=== PATIENT | female | born 1940 | race Caucasian/White ===

== ENCOUNTER 2016-10-05 11:44 | Inpatient (IN) | payer MEDICARE, BC ==
[~2016-10-05] VITALS: Ht 172.7 cm; Wt 69.8 kg
[2016-10-05] VITALS (15 sets, daily range): BP systolic 126–176; BP diastolic 64–91; PULSE 57–70; RESP 12–20; TEMP 98.6; O2SAT 98–100
[2016-10-05] MEDS ORDERED: SUCCINYLCHOLINE CHLORIDE 200 MG/10 ML VIAL ONE (12:01)
[2016-10-05] MEDS ORDERED: ETOMIDATE 20 MG/10 ML VIAL ONE (12:01)
[2016-10-05] MEDS ORDERED: ROCURONIUM INJ 50 MG/5 ML VIAL ONE (12:38)
[2016-10-05] MEDS ORDERED: PROPOFOL 500 MG/50 ML INJ 50 ML ONE (12:41)
[2016-10-05] MEDS ORDERED: SODIUM CHLORIDE 0.9% FLUSH 5 ML FLUSH IVF PRN ×2 (12:45→15:45)
--- NOTE | 2016-10-05 13:13 | PD ---
HPI Chief Complaint: OD/ Ingestion Time Seen by Provider: 12:06 Travel History International Travel<30 days: No Contact w/Intl Traveler<30days: No Traveled to known affect area: No History of Present Illness HPI 76yo F with PMH of depression presents to the ED with altered mental status s/p overdose. Per , he found her in the bed at 9am with empty bottles of alprazolam and escitalopram. Pt was prescribed 30 escitalopram on 07/31/16 and 60 alprazolam on 09/19/16. does not know how many was in there. There was also another 2 empty bottles of escitalopram and alprazolam. Pt arousable to voice and opens eyes but is very lethargic. VS stable. Pt not following commands. Pt given narcan 2mg by EVAC with no response. No signs of trauma. PFSH Past Medical History Asthma: Yes Anxiety: Yes Depression: Yes Past Surgical History Genitourinary Surgery: Yes (?kidney surgery) Other Surgery: Yes (breast augmentation) Social History Alcohol Use: No Tobacco Use: No Substance Use: No Allergies-Medications (Allergen,Severity, Reaction): Coded Allergies: No Known Allergies (Unverified , 10/05/16) Reported Meds & Prescriptions Reported Meds & Active Scripts Active Reported Lexapro (Escitalopram Oxalate) 5 Mg Tab Unknown Dose PO DAILY Xanax (Alprazolam) 0.25 Mg Tab Unknown Dose PO Review of Systems ROS Limitations: Altered Mental Status Physical Exam Narrative GENERAL: 76yo lethargic. SKIN: Warm and dry. HEAD: Atraumatic. Normocephalic. EYES: Pupils 3mm reactive bilaterally to light. No scleral icterus. No injection or drainage. ENT: No nasal bleeding or discharge. Mucous membranes pink and moist. NECK: Trachea midline. No JVD. CARDIOVASCULAR: Regular rate and rhythm. No murmur appreciated. RESPIRATORY: No accessory muscle use. Clear to auscultation. Breath sounds equal bilaterally. GASTROINTESTINAL: Abdomen soft, non-tender, nondistended. No rebound tenderness or guarding. MUSCULOSKELETAL: No obvious deformities. No clubbing. No cyanosis. No edema. NEUROLOGICAL: Lethargic, arousable with voice and to pain. Pt moves extremities but not to command. Data Data Last Documented VS Vital Signs Date Time Temp Pulse Resp B/P Pulse Ox O2 Delivery O2 Flow Rate FiO2 10/05/16 13:37 100 Ventilator 14 35 10/05/16 13:26 59 20 145/85 Orders Etomidate Inj (Amidate Inj) (10/05/16 12:01) Succinylcholine Inj (Quelicin Inj) (10/05/16 12:01) Rocuronium Inj (Zemuron Inj) (10/05/16 12:38) Propofol 500 Mg/50 Ml Inj (Diprivan 500 (10/05/16 12:41) Chest, Single Ap (10/05/16 ) Electrocardiogram (10/05/16 12:44) Alcohol (Ethanol) (10/05/16 12:44) Ammonia (10/05/16 12:44) Basic Metabolic Panel (Bmp) (10/05/16 12:44) Complete Blood Count With Diff (10/05/16 12:44) Creatine Kinase (Cpk) (10/05/16 12:44) Drug Screen, Random Urine (10/05/16 12:44) Prothrombin Time / Inr (Pt) (10/05/16 12:44) Act Partial Throm Time (Ptt) (10/05/16 12:44) Salicylates (Aspirin) (10/05/16 12:44) Troponin I (10/05/16 12:44) Tylenol (Acetaminophen) (10/05/16 12:44) Thyroid Stimulating Hormone (10/05/16 12:44) Urinalysis - C+S If Indicated (10/05/16 12:44) Ct Brain W/O Iv Contrast(Rout) (10/05/16 12:44) Blood Glucose (10/05/16 12:44) Ecg Monitoring (10/05/16 12:44) Iv Access Insert/Monitor (10/05/16 12:44) Oximetry (10/05/16 12:44) Sodium Chloride 0.9% Flush (Ns Flush) (10/05/16 12:45) Succinylcholine Inj (Quelicin Inj) (10/05/16 13:15) Etomidate Inj (Amidate Inj) (10/05/16 13:15) Rocuronium Inj (Zemuron Inj) (10/05/16 13:15) Propofol 1000 Mg/100 Ml Inj (Diprivan 10 (10/05/16 13:15) ^ Infusion (10/05/16 13:08) RASS (10/05/16 13:08) Neurological Rass Scale DONNA.Q2H (10/05/16 13:08) Urine Culture (10/05/16 13:05) Arterial Blood Gas (Abg) (10/05/16 14:10) Admit Order (Ed Use Only) (10/05/16 14:29) Labs Laboratory Tests Test 10/05/16 10/05/16 10/05/16 13:05 13:07 14:10 White Blood Count 7.2 TH/MM3 Red Blood Count 4.21 MIL/MM3 Hemoglobin 12.8 GM/DL Hematocrit 38.9 % Mean Corpuscular Volume 92.3 FL Mean Corpuscular Hemoglobin 30.4 PG Mean Corpuscular Hemoglobin 33.0 % Concent Red Cell Distribution Width 14.4 % Platelet Count 276 TH/MM3 Mean Platelet Volume 7.9 FL Neutrophils (%) (Auto) 65.4 % Lymphocytes (%) (Auto) 22.9 % Monocytes (%) (Auto) 6.6 % Eosinophils (%) (Auto) 4.2 % Basophils (%) (Auto) 0.9 % Neutrophils # (Auto) 4.7 TH/MM3 Lymphocytes # (Auto) 1.6 TH/MM3 Monocytes # (Auto) 0.5 TH/MM3 Eosinophils # (Auto) 0.3 TH/MM3 Basophils # (Auto) 0.1 TH/MM3 CBC Comment DIFF FINAL Differential Comment Prothrombin Time 10.2 SEC Prothromb Time International 0.9 RATIO Ratio Activated Partial 21.1 SEC Thromboplast Time Urine Color YELLOW Urine Turbidity CLEAR Urine pH 5.5 Urine Specific [place] 1.011 Urine Protein NEG mg/dL Urine Glucose (UA) NEG mg/dL Urine Ketones NEG mg/dL Urine Occult Blood NEG Urine Nitrite NEG Urine Bilirubin NEG Urine Urobilinogen LESS THAN 2.0 MG/DL Urine Leukocyte Esterase SMALL Urine RBC 1 /hpf Urine WBC 1 /hpf Urine Squamous Epithelial 1 /hpf Cells Urine Bacteria RARE /hpf Urine Mucus FEW /lpf Microscopic Urinalysis Comment CATH-CULTURE IND Ammonia 36 MCMOL/L Urine Opiates Screen NEG Urine Barbiturates Screen NEG Urine Amphetamines Screen NEG Urine Benzodiazepines Screen POS Urine Cocaine Screen NEG Urine Cannabinoids Screen NEG Sodium Level 141 MEQ/L Potassium Level 4.4 MEQ/L Chloride Level 107 MEQ/L Carbon Dioxide Level 28.4 MEQ/L Anion Gap 6 MEQ/L Blood Urea Nitrogen 13 MG/DL Creatinine 1.06 MG/DL Estimat Glomerular Filtration 50 ML/MIN Rate Random Glucose 89 MG/DL Calcium Level 8.4 MG/DL Total Creatine Kinase 60 U/L Troponin I LESS THAN 0.02 NG/ML Thyroid Stimulating Hormone 1.250 uIU/ML 3rd Gen Salicylates Level LESS THAN 1.7 MG/DL Acetaminophen Level 7.6 MCG/ML Ethyl Alcohol Level LESS THAN 3 MG/DL Blood Gas Puncture Site RT BRACHIAL Blood Gas Patient Temperature 98.6 Blood Gas HCO3 26 mmol/L Blood Gas Base Excess 3.4 mmol/L Blood Gas Oxygen Saturation 96 % Arterial Blood pH 7.53 Arterial Blood Partial 32 mmHg Pressure CO2 Arterial Blood Partial 350 mmHG Pressure O2 Arterial Blood Oxygen Content 19.2 Vol % Arterial Blood 1.9 % Carboxyhemoglobin Arterial Blood Methemoglobin 1.9 % Blood Gas Hemoglobin 13.6 G/DL Oxygen Delivery Device VENTILATOR Blood Gas Ventilator Setting 500/14/5PEEP Blood Gas Inspired Oxygen 75 % MDM Medical Decision Making Medical Screen Exam Complete: Yes Emergency Medical Condition: Yes Interpretation(s) EKG: NSR 66bpm. Normal axis. QRS narrow. QTc 477ms. Differential Diagnosis Intentional overdose vs. AMS secondary to ICH vs. electrolyte abnormality vs. UTI Narrative Course 76yo F with depression here with altered mental status and empty bottles of escitalopram and alprazolam. Discussed with pt's who was at bedside and he agrees with plan to intubate. He states he did not know when last normal was but was not able to arouse her at about 9am today. Labs reviewed, no leukocytosis. Ammonia mildly elevated at 36. TSH normal. Troponin negative. Salicylate negative. Acetaminophen 7.6. Alcohol negative. Benzo positive. VS stable. CXR showed cardiomegaly and endotracheal tube at juhi. Pt emergently intubated secondary to altered mental status using succinylcholine and etomidate. Pt was given rocuronium immediately after intubation as we were getting the propofol drip. Discussed with Dr. Espinosa and accepted to ICU. Pt nighat acted as suspicious for intentional overdose. Critical Care Narrative Aggregate critical care time was 50 minutes. Time to perform other separately billable procedures was not included in the critical care time. My time did not include minutes spent treating any other patients simultaneously or on activities that did not directly contribute to the patient's treatment. The services I provided to this patient were to treat and/or prevent clinically significant deterioration that could result in: cardiovascular collapse or . I provided critical care services requiring my management, as noted below: Chart data review, documentation time, medication orders and management, vital sign assessments/reviewing monitor data, ordering and reviewing lab tests, ordering and interpreting/reviewing x-rays and diagnostic studies, care of the patient and discussion of the patient with the admitting physicians. Procedures Procedure Narrative The patient was put in optimal position for the procedure. Rapid sequence intubation was initiated by me using 20 milligrams of etomidate IV and 100 milligrams of succinylcholine IV. The patient was intubated with a 7.5 cuffed endotracheal tube. It was a difficult intubation and initially unsuccessful with direct laryngoscopy. Pt intubated with glidescope. Tube placement was confirmed by visualization of the tube and balloon passing through the cords, capnometry and subsequent chest x-ray. Breath sounds were equal and well aerated bilaterally postintubation. No breath sounds over stomach. Patient tolerated procedure well. Diagnosis Primary Impression: Overdose Qualified Code: T50.902A - Overdose, intentional self-harm, initial encounter Admitting Information Admitting Physician Requests: Admit Kate Foster DO Oct 05, 2016 13:13
[2016-10-05] MEDS ORDERED: SUCCINYLCHOLINE CHLORIDE 200 MG/10 ML VIAL IV PUSH ONE (13:15)
[2016-10-05] MEDS ORDERED: PROPOFOL 1000 MG/100 ML INJ 100 ML IV SCH (13:15)
[2016-10-05] MEDS ORDERED: ETOMIDATE 20 MG/10 ML VIAL IV PUSH ONE (13:15)
[2016-10-05] MEDS ORDERED: ROCURONIUM INJ 50 MG/5 ML VIAL IV ONE (13:15)
--- NOTE | 2016-10-05 13:26 | RADRPT ---
EXAM DATE/TIME: 10/05/2016 12:59 [facility] COMPARISON: No previous studies available for comparison. INDICATIONS : Altered mental status. MEDICAL HISTORY : None. SURGICAL HISTORY : None. ENCOUNTER: Initial ACUITY: 1 day PAIN SCORE: Non-responsive. LOCATION: Bilateral chest FINDINGS: The cardiac silhouette is enlarged in transverse diameter. The lungs are free of acute parenchymal op acity. No effusions are identified. There is prominence of the aortic knob is with calcification pedrito acteristic of atherosclerotic vascular disease. Endotracheal tube is at the juhi and could be retra cted 2-3 cm. A nasogastric tube is in place with its tip in the stomach. CONCLUSION: 1. Cardiomegaly. No acute pulmonary disease. 2. Endotracheal tube directly at the juhi Noe Herrera MD on October 05, 2016 at 13:24 Board Certified Radiologist. This report was verified electronically.
[2016-10-05 13:40] LABS: AUTOMATED NEUTROPHIL # 4.7 TH/MM3 (1.8-7.7); BASOPHIL # 0.1 TH/MM3 (0-0.2); BASOPHIL % 0.9 % (0.0-2.0); EOSINOPHIL # 0.3 TH/MM3 (0-0.4); EOSINOPHIL % 4.2 % (0.0-4.0); HEMATOCRIT 38.9 % (35.0-46.0); HEMO FLAGS DIFF FINAL; LYMPH % 22.9 % (9.0-44.0); LYMPHOCYTE # 1.6 TH/MM3 (1.0-4.8); MEAN CELL VOLUME 92.3 FL (80.0-100.0); MEAN CORPUSCULAR HEMOGLOBIN 30.4 PG (27.0-34.0); MONO % 6.6 % (0.0-8.0); NEUT % 65.4 % (16.0-70.0); PLATELET COUNT 276 TH/MM3 (150-450); RED BLOOD COUNT 4.21 MIL/MM3 (4.00-5.30); RED CELL DISTRIBUTION WIDTH 14.4 % (11.6-17.2); WHITE BLOOD COUNT 7.2 TH/MM3 (4.0-11.0)
[2016-10-05 13:50] LABS: BACTERIA, URINE RARE /hpf; BLOOD, URINE NEG (NEG); GLUCOSE,URINE NEG (NEG); KETONE, URINE NEG (NEG); MUCUS URINE FEW /lpf (OCC); NITRITE,URINE NEG (NEG); PH, URINE 5.5 (5.0-8.5); SQUAMOUS EPITHELIAL CELL URINE 1 /hpf (0-5); URINE COLOR YELLOW (YELLW/STRAW)
[2016-10-05 13:52] LABS: APTT (PATIENT) 21.1 SEC (24.3-30.1); INTERNATIONAL NORMALIZED RATIO 0.9 RATIO; PROTHROMBIN TIME - PATIENT 10.2 SEC (9.8-11.6)
[2016-10-05 13:54] LABS: AMPHETAMINE, URINE NEG (NEG); BARBITURATES, URINE NEG (NEG); COCAINE, URINE NEG (NEG); COMMENT (UR) CATH-CULTURE IND; CULTURE IF INDICATED CATH CULTURE IND
[2016-10-05 14:05] LABS: ACETAMINOPHEN 7.6 MCG/ML (10.0-30.0); ANION GAP 6 MEQ/L (5-15); BICARBONATE 28.4 MEQ/L (21.0-32.0); BLOOD UREA NITROGEN 13 MG/DL (7-18); CHLORIDE 107 MEQ/L (98-107); GLOMERULAR FILTRATION RATE 50 ML/MIN (>89); POTASSIUM 4.4 MEQ/L (3.5-5.1); SODIUM (NA) 141 MEQ/L (136-145)
[2016-10-05 14:14] LABS: CREATINE KINASE 60 U/L (26-192)
[2016-10-05 14:22] LABS: BLOOD GAS BASE EXCESS 3.4 mmol/L (-2-2); BLOOD GAS CARBOXYHEMOGLOBIN 1.9 % (0-4); BLOOD GAS HCO3 26 mmol/L (22-26); BLOOD GAS METHEMOGLOBIN 1.9 % (0-2); BLOOD GAS O2 HGB SATURATION 96 % (90-100); BLOOD GAS OXYGEN CONTENT 19.2 Vol % (12.0-20.0); BLOOD GAS PCO2 32 mmHg (38-42); BLOOD GAS PO2 350 mmHG (61-120); BLOOD GAS TOTAL HGB 13.6 G/DL (12.0-16.0); TEMP CORR TO 98.6
[2016-10-05 14:23] LABS: CRITICAL VALUE YES; DRAW SITE RT BRACHIAL; FIO2 75 %; NUMBER OF ARTERIAL PUNCTURES 1; OXYGEN DEVICE VENTILATOR; STAT YES; VENT SETTINGS 500/14/5PEEP
--- NOTE | 2016-10-05 15:41 | HHI.HP ---
[facility] Service Critical Care Medicine Primary Care Physician Hernesto Franz MD Admission Diagnosis Overdose Diagnosis: Chief Complaint: Altered mental status Travel History International Travel<30 Days: No Contact w/Intl Traveler <30 Da: No Traveled to Known Affected Are: No History of Present Illness 76yo F with PMH of depression presented to the ED with altered mental status s/ p overdose. Per ER documentation, found her in bed at 9am with empty bottles of alprazolam and escitalopram. Pt was prescribed 30 escitalopram on and 60 alprazolam on 09/19/16. does not know how many she had remaining. There was also another 2 empty bottles of escitalopram and alprazolam. Pt arousable to voice and opens eyes but very lethargic on arrival in ER. VS stable. Pt not following commands. Pt given narcan 2mg by EVAC with no response. No signs of trauma. She was intubated for airway protection and placed on mechanical ventilation by ER physician and subsequently started on propofol for vent synchrony. Patient was accepted for admission by critical care medicine service. When I evaluated the patient she was sedated with propofol, orally intubated on mechanical ventilation. History is obtained by reviewing records and discussion with ER physician. No family available at bedside at the time of my evaluation. PFSH Past Medical History Asthma: Yes Anxiety: Yes Depression: Yes Past Surgical History Genitourinary Surgery: Yes (?kidney surgery) Other Surgery: Yes (breast augmentation) Social History Alcohol Use: No Tobacco Use: No Substance Use: No Allergies-Medications (Allergen,Severity, Reaction): Coded Allergies: No Known Allergies (Unverified , 10/05/16) Review of Systems ROS Limitations: Altered Mental Status Physical Exam Vital Signs Vital Signs Date Time Temp Pulse Resp B/P Pulse Ox O2 Delivery O2 Flow Rate FiO2 10/05/16 14:44 100 75 10/05/16 14:32 57 20 157/91 100 Ventilator 12 35 10/05/16 13:37 100 Ventilator 14 35 10/05/16 13:27 35 10/05/16 13:26 59 20 145/85 100 Ventilator 14 35 10/05/16 12:06 57 15 130/64 100 Nasal Cannula 2 10/05/16 11:48 58 18 126/73 98 Physical Exam HEENT/ Neuro: Pupils 2 mm bilaterally constricted, reactive to light. Sedated/ encephalopathic, orally intubated, no pallor, no icterus, tongue/ mucosa moist. Not responding to painful stimuli. Neck: No JVD Chest/Pulm: on mech vent, good air entry bilaterally, no wheezing or crackles CVS: S1-S2 regular, no murmur GI/abdomen: soft, nontender, bowel sounds sluggish Extremities: warm bilaterally, no edema Laboratory Laboratory Tests Test 10/05/16 10/05/16 10/05/16 13:05 13:07 14:10 White Blood Count 7.2 Red Blood Count 4.21 Hemoglobin 12.8 Hematocrit 38.9 Mean Corpuscular Volume 92.3 Mean Corpuscular Hemoglobin 30.4 Mean Corpuscular Hemoglobin 33.0 Concent Red Cell Distribution Width 14.4 Platelet Count 276 Mean Platelet Volume 7.9 Neutrophils (%) (Auto) 65.4 Lymphocytes (%) (Auto) 22.9 Monocytes (%) (Auto) 6.6 Eosinophils (%) (Auto) 4.2 Basophils (%) (Auto) 0.9 Neutrophils # (Auto) 4.7 Lymphocytes # (Auto) 1.6 Monocytes # (Auto) 0.5 Eosinophils # (Auto) 0.3 Basophils # (Auto) 0.1 CBC Comment DIFF FINAL Differential Comment Prothrombin Time 10.2 Prothromb Time International 0.9 Ratio Activated Partial 21.1 Thromboplast Time Urine Color YELLOW Urine Turbidity CLEAR Urine pH 5.5 Urine Specific [place] 1.011 Urine Protein NEG Urine Glucose (UA) NEG Urine Ketones NEG Urine Occult Blood NEG Urine Nitrite NEG Urine Bilirubin NEG Urine Urobilinogen LESS THAN 2.0 Urine Leukocyte Esterase SMALL Urine RBC 1 Urine WBC 1 Urine Squamous Epithelial 1 Cells Urine Bacteria RARE Urine Mucus FEW Microscopic Urinalysis Comment CATH-CULTURE IND Ammonia 36 Urine Opiates Screen NEG Urine Barbiturates Screen NEG Urine Amphetamines Screen NEG Urine Benzodiazepines Screen POS Urine Cocaine Screen NEG Urine Cannabinoids Screen NEG Sodium Level 141 Potassium Level 4.4 Chloride Level 107 Carbon Dioxide Level 28.4 Anion Gap 6 Blood Urea Nitrogen 13 Creatinine 1.06 Estimat Glomerular Filtration 50 Rate Random Glucose 89 Calcium Level 8.4 Total Creatine Kinase 60 Troponin I LESS THAN 0.02 Thyroid Stimulating Hormone 1.250 3rd Gen Salicylates Level LESS THAN 1.7 Acetaminophen Level 7.6 Ethyl Alcohol Level LESS THAN 3 Blood Gas Puncture Site RT BRACHIAL Blood Gas Patient Temperature 98.6 Blood Gas HCO3 26 Blood Gas Base Excess 3.4 Blood Gas Oxygen Saturation 96 Arterial Blood pH 7.53 Arterial Blood Partial 32 Pressure CO2 Arterial Blood Partial 350 Pressure O2 Arterial Blood Oxygen Content 19.2 Arterial Blood 1.9 Carboxyhemoglobin Arterial Blood Methemoglobin 1.9 Blood Gas Hemoglobin 13.6 Oxygen Delivery Device VENTILATOR Blood Gas Ventilator Setting 500/14/5PEEP Blood Gas Inspired Oxygen 75 Date/Time Procedure Status Source Growth 10/05/16 13:05 Urine Culture Received Urine Catheterized Urine Pending Result Diagram: 10/05/16 1305 10/05/16 1307 Imaging Last Impressions Chest X-Ray 10/05/16 0000 Signed Impressions: Service Date/Time: Wednesday, October 05, 2016 12:59 - CONCLUSION: 1. Cardiomegaly. No acute pulmonary disease. 2. Endotracheal tube directly at the juhi Noe Herrera MD Assessment and Plan Assessment and Plan 76-year-old female with: Encephalopathy secondary to benzodiazepine/citalopram overdose Acute respiratory failure on mechanical ventilation Asthma Anxiety Depression Plan: Neuro: Will obtain head CT. Sedation with propofol for vent synchrony. Daily sedation vacation. Follow neuro status. Once neuro status improved, we'll initiate C Pap trials to decide extubation. Psych consult for intentional suicidal overdose following extubation. Cardiovascular: IV hydration, watch for hypotension Pulmonary: Continue mechanical ventilation, bronchodilators as needed, vent bundle, daily C Pap trials once neuro status improves to decide extubation. GI/liver: Start tube feeds and advanced to goal as tolerated. Renal/: IV hydration, strict intake output, monitor and replete electro lites , follow BUN/creatinine. Heme: Follow CBC Endocrine: SSI for glycemic control ID: Watch for fever/leukocytosis. No antibiotics at this time. Prophylaxis: PPI/SCDs/Lovenox. Time spent on critical care excluding procedures 45 minutes Rogelio Espinosa MD Oct 05, 2016 15:41
[2016-10-05] MEDS ORDERED: ACETAMINOPHEN 325 MG TAB PO PRN (15:45)
[2016-10-05] MEDS ORDERED: CHLORHEXIDINE GLUCONATE 2 % 1 PACK (2 CLOTHS) TOP PRN (15:45)
[2016-10-05] MEDS ORDERED: MISCELLANEOUS NURSING INFORMATION XX SCH (15:45)
[2016-10-05] MEDS ORDERED: RESP: ALBUTEROL 2.5 MG/IPRATROPIUM 0.5 MG NEB (PRN) INH (15:45)
[2016-10-05] MEDS: PROPOFOL 1000 MG/100 ML INJ 100 ML IV SCH (16:16)
[2016-10-05] MEDS ORDERED: LEXA5TAB PO (17:30)
[2016-10-05] MEDS ORDERED: ALPR.25 PO (17:30)
[2016-10-05] MEDS: SODIUM CHLOR 0.9% 1000 ML INJ 1,000 ML IV SCH (17:43)
[2016-10-05] MEDS: INSULIN ASPART SUPPLEMENTAL SCALE SQ SCH (17:43)
[2016-10-05] MEDS: ENOXAPARIN SODIUM 40 MG/0.4 ML SYRINGE SQ SCH (20:51)
--- NOTE | 2016-10-05 23:38 | RADRPT ---
EXAM DATE/TIME: 10/05/2016 23:14 [facility] COMPARISON: No previous studies available for comparison. INDICATIONS : Overdose. RADIATION DOSE: 38.50 CTDIvol (mGy) MEDICAL HISTORY : None SURGICAL HISTORY : None. ENCOUNTER: Initial ACUITY: 1 day PAIN SCALE: Non-responsive LOCATION: cranial TECHNIQUE: Multiple contiguous axial images were obtained of the head. Using automated exposure control and adj ustment of the mA and/or kV according to patient size, radiation dose was kept as low as reasonably a chievable to obtain optimal diagnostic quality images. FINDINGS: CEREBRUM: The ventricles are normal for age. No evidence of midline shift, mass lesion, hemorrhage or acute in farction. No extra-axial fluid collections are seen. POSTERIOR FOSSA: The cerebellum and brainstem are intact. The 4th ventricle is midline. The cerebellopontine angle i s unremarkable. EXTRACRANIAL: The visualized portion of the orbits is intact. Moderate mucosal sinus disease SKULL: The calvaria is intact. No evidence of skull fracture. CONCLUSION: No acute intracranial findings. Moderate sinus disease. Vinnie Kennedy MD on October 05, 2016 at 23:35 Board Certified Radiologist. This report was verified electronically.
[2016-10-06] VITALS (16 sets, daily range): BP systolic 122–162; BP diastolic 60–87; PULSE 66–95; RESP 12–16; TEMP 98.1–99.9; O2SAT 92–100
[2016-10-06] MEDS: CHLORHEXIDINE 0.12% (ORAL KIT) 15 ML CUP MT SCH ×2 (00:18→20:00)
[2016-10-06] MEDS: SODIUM CHLORIDE 0.9% FLUSH 5 ML FLUSH IVF SCH ×2 (00:18→20:45)
[2016-10-06] MEDS: SODIUM CHLOR 0.9% 1000 ML INJ 1,000 ML IV SCH ×2 (02:00→12:00)
[2016-10-06] MEDS: PROPOFOL 1000 MG/100 ML INJ 100 ML IV SCH ×2 (02:23→06:22)
[2016-10-06 03:55] LABS: AUTOMATED NEUTROPHIL # 11.1 TH/MM3 (1.8-7.7); BASOPHIL # 0.1 TH/MM3 (0-0.2); BASOPHIL % 0.5 % (0.0-2.0); EOSINOPHIL # 0.2 TH/MM3 (0-0.4); EOSINOPHIL % 1.6 % (0.0-4.0); HEMATOCRIT 42.4 % (35.0-46.0); HEMO FLAGS AUTO DIFF; LYMPH % 14.7 % (9.0-44.0); LYMPHOCYTE # 2.1 TH/MM3 (1.0-4.8); MEAN CELL VOLUME 91.8 FL (80.0-100.0); MEAN CORPUSCULAR HEMOGLOBIN 29.9 PG (27.0-34.0); MEAN CORPUSCULAR HGB CONC 32.6 % (32.0-36.0); MONO % 6.1 % (0.0-8.0); NEUT % 77.1 % (16.0-70.0); PLATELET COUNT 268 TH/MM3 (150-450); RED BLOOD COUNT 4.62 MIL/MM3 (4.00-5.30); RED CELL DISTRIBUTION WIDTH 14.2 % (11.6-17.2); WHITE BLOOD COUNT 14.4 TH/MM3 (4.0-11.0)
[2016-10-06] MEDS: CHLORHEXIDINE GLUCONATE 2 % 1 PACK (2 CLOTHS) TOP SCH (04:00)
[2016-10-06 04:10] LABS: ALKALINE PHOSPHATASE 88 U/L (45-117); TOTAL BILIRUBIN ADULT 0.5 MG/DL (0.2-1.0)
[2016-10-06 04:17] LABS: ALT (GPT) 20 U/L (10-53); ANION GAP 9 MEQ/L (5-15); AST (GOT) 20 U/L (15-37); BICARBONATE 29.4 MEQ/L (21.0-32.0); BLOOD UREA NITROGEN 15 MG/DL (7-18); CHLORIDE 104 MEQ/L (98-107); GLOMERULAR FILTRATION RATE 48 ML/MIN (>89); POTASSIUM 3.7 MEQ/L (3.5-5.1); SODIUM (NA) 142 MEQ/L (136-145)
[2016-10-06] MEDS: INSULIN ASPART SUPPLEMENTAL SCALE SQ SCH ×4 (05:22→18:00)
[2016-10-06 07:16] LABS: PLATELET ESTIMATE SMEAR NORMAL (NORMAL); PLATELET MORPHOLOGY NORMAL (NORMAL); SCAN/DIFF AUTO DIFF CONFIRMED
[2016-10-06] MEDS: PANTOPRAZOLE SODIUM 40 MG VIAL IV SCH (08:57)
--- NOTE | 2016-10-06 09:02 | HHI.CCPN ---
Subjective Remarks/Hospital Course 10/05: 76yo F with PMH of depression presented to the ED with altered mental status s/p overdose. Per ER documentation, found her in bed at 9am with empty bottles of alprazolam and escitalopram. Pt was prescribed 30 escitalopram on 07/31/16 and 60 alprazolam on 09/19/16. does not know how many she had remaining. There was also another 2 empty bottles of escitalopram and alprazolam. Pt arousable to voice and opens eyes but very lethargic on arrival in ER. VS stable. Pt not following commands. Pt given narcan 2mg by EVAC with no response. No signs of trauma. She was intubated for airway protection and placed on mechanical ventilation by ER physician and subsequently started on propofol for vent synchrony. Patient was accepted for admission by critical care medicine service. When I evaluated the patient she was sedated with propofol, orally intubated on mechanical ventilation. History is obtained by reviewing records and discussion with ER physician. No family available at bedside at the time of my evaluation. 10/06: Sedated/drowsy, arousable, orally intubated on mechanical ventilation at the time of my evaluation this morning. Objective Vital Signs Date Time Temp Pulse Resp B/P Pulse Ox O2 Delivery O2 Flow Rate FiO2 10/06/16 07:49 92 40 10/06/16 06:00 67 10/06/16 04:00 98.2 12 133/80 10/05/16 19:18 Auto-Vent 10/05/16 17:44 12 Intake and Output 10/05/16 10/05/16 10/06/16 08:00 16:00 00:00 Output Total 800 ml Balance -800 ml Result Diagram: 10/06/16 0307 10/06/16 0307 Imaging Last Impressions Head CT 10/05/16 1244 Signed Impressions: Service Date/Time: Wednesday, October 05, 2016 23:14 - CONCLUSION: No acute intracranial findings. Moderate sinus disease. Vinnie Kennedy MD Chest X-Ray 10/05/16 0000 Signed Impressions: Service Date/Time: Wednesday, October 05, 2016 12:59 - CONCLUSION: 1. Cardiomegaly. No acute pulmonary disease. 2. Endotracheal tube directly at the juhi Noe Herrera MD Objective Remarks HEENT/ Neuro: Pupils 2 mm bilaterally constricted, reactive to light. Sedated/ encephalopathic, orally intubated, no pallor, no icterus, tongue/ mucosa moist. Opens eyes on calling her name, not following commands otherwise. Grimaces with painful stimuli Neck: No JVD Chest/Pulm: on mech vent, good air entry bilaterally, no wheezing or crackles CVS: S1-S2 regular, no murmur GI/abdomen: soft, nontender, bowel sounds sluggish Extremities: warm bilaterally, no edema Urinary Catheter: Yes Assessment to: Continue A/P Assessment and Plan 76-year-old female with: Encephalopathy secondary to benzodiazepine/citalopram overdose Acute respiratory failure on mechanical ventilation Asthma Anxiety Depression Leukocytosis Plan: Neuro: Head CT negative for ICH. Held propofol and initiate C Pap trial this morning. Follow neuro status. Psych consult for intentional suicidal overdose following extubation. Cardiovascular: IV hydration, watch for hypotension Pulmonary: bronchodilators as needed, initiate C Pap trial, patient had a cuff leak this morning, proceeded with extubation. Patient requiring nonrebreather facemask due to shallow breathing needed will follow up ABG following extubation to check for CO2 retention. Will also obtain a chest x-ray to evaluate for any evidence of aspiration. GI/liver: Tube feeds held for extubation. Keep nothing by mouth for now. Renal/: IV hydration, strict intake output, monitor and replete electro lites , follow BUN/creatinine. Heme: Follow CBC Endocrine: SSI for glycemic control ID: Leukocytosis noted. Has evidence of sinusitis on CT head. Off antibiotics currently. We'll follow-up chest x-ray for infiltrates and if positive will consider initiating antibiotics. Prophylaxis: PPI/SCDs/Lovenox. Discussed with patient's at bedside regarding current clinical status and plan of care and he voiced understanding and was agreeable. Condition remains critical. Patient may require reintubation for airway protection/ respiratory failure. Time spent on critical care excluding procedures 30 minutes Rogelio Espinosa MD Oct 06, 2016 09:02
--- NOTE | 2016-10-06 09:38 | RADRPT ---
EXAM DATE/TIME: 10/06/2016 09:05 [facility] COMPARISON: CHEST SINGLE AP, October 05, 2016, 12:59. INDICATIONS : Short of breath. Interval extubation and removal of nasogastric tube. MEDICAL HISTORY : None. SURGICAL HISTORY : None. ENCOUNTER: Initial ACUITY: 1 day PAIN SCORE: 0/10 LOCATION: Bilateral chest FINDINGS: A single AP erect view of the chest was obtained and demonstrates interval extubation and removal of nasogastric tube. There are no confluent infiltrates or effusions. Atherosclerotic changes are presen t in the aorta. The heart size is within normal limits with no perihilar edema. The bony thorax is in tact. There are multiple overlying electrocardiogram leads. CONCLUSION: 1. Interval extubation and removal of nasogastric tube. 2. No acute cardiopulmonary disease. Murray Alcaraz MD on October 06, 2016 at 9:30 Board Certified Radiologist. This report was verified electronically.
[2016-10-06 09:48] LABS: BLOOD GAS CARBOXYHEMOGLOBIN 1.1 % (0-4); BLOOD GAS HCO3 27 mmol/L (22-26); BLOOD GAS METHEMOGLOBIN 1.1 % (0-2); BLOOD GAS O2 HGB SATURATION 96 % (90-100); BLOOD GAS OXYGEN CONTENT 18.7 Vol % (12.0-20.0); BLOOD GAS PCO2 46 mmHg (38-42); BLOOD GAS PO2 122 mmHg (61-120); BLOOD GAS TOTAL HGB 13.8 G/DL (12.0-16.0); TEMP CORR TO 98.6
[2016-10-06 09:49] LABS: CRITICAL VALUE NO; DRAW SITE RT RADIAL; LITER FLOW 15 L/M; NUMBER OF ARTERIAL PUNCTURES 1; OXYGEN DEVICE NONREBREATHER; STAT NO
--- NOTE | 2016-10-06 14:31 | PD.CONS ---
Provisional Diagnosis Admission Date Oct 05, 2016 at 14:30 [place] I. Major depressive disorder, recurrent, severe, anxiety [place] II. Deferred [place] III. Asthma [place] IV. Under observation [place] V. 35 History of Present Illness Service Psychiatry Consult Requested By Primary Care Physician Hernesto Franz MD HPI The patient is a 76 y/o woman, , domicile with her in [place], with psychiatric history of depression and anxiety, no previous psychiatric hospitalizations, she is in Lexapro and Xanax prescribed by PCP, she doesn't have any previous suicidal attempts, as per records, past medical history of asthma, who initially presented to the ED with altered mental status s/p overdose. Per ER documentation, her found her in bed at 9am with empty bottles of alprazolam and escitalopram. Pt was prescribed 30 escitalopram on 07/31/16 and 60 alprazolam on 09/19/16. does not know how many she had remaining. There was also another 2 empty bottles of escitalopram and alprazolam. She was intubated for airway protection and placed on mechanical ventilation by ER physician and subsequently started on propofol for vent synchrony. Patient was placed in the ICU, she was consulted to psychiatry to assess potential depressive symptoms and potential suicidal intention of her overdose. But the psychiatric evaluation was impossible at this moment because the patient was found intubated, sedated and not able to participate in a psychiatric assessment at this moment. Her , Colt Earl, , was contacted for collateral information. He explains that the patient has been very stressed out in the last 3 weeks #1 because her granddaughter recently became , #2 because her son broke up with his girlfriend and after that has been depressed, using drugs, and has tried to commit suicide. #3 her was recently diagnosed with cancer and after that she has been voicing depression and suicidal thoughts, #4 she is in the process to move to another house and this situation has her very anxious. Her explains that he doesn't think that she overdosed with suicidal intention because this is not the kind of personality that she has, she is a fighter and she is the one to be in the front line facing the problem, but he doesn't rule out the possibly given the amount of stress that she has been dealing with. He says that the patient doesn't have any previous psychiatric history, as far he knows, the medications for depression and anxiety that she has been taking are prescribed by her PCP. He explains that if psychiatric admission is indicated he would agree with it, but if the patient is discharged back home he would be very happy to accept her back and take care of her, Review of Systems ROS Limitations: Unresponsive, Uncooperative Past Family Social History Coded Allergies: No Known Allergies (Unverified , 10/05/16) Reported Medications Escitalopram (Lexapro)5 Mg TabUnknown Dose PO DAILY Ref 0 10/05/16 Alprazolam (Xanax)0.25 Mg TabUnknown Dose PO Ref 0 10/05/16 Current Medications Medications (Trade) Dose Ordered Sig/Callum Route Start Time Stop Time Status Last Admin IV Flush 2 ml 2 ml UNSCH PRN IVF 10/05/16 12:45 (Diprivan 1000 Mg/100ml Inj) 100 ml @ 0 mls/hr TITRATE IV 10/05/16 13:15 (NS Flush) 2 ml UNSCH PRN IVF 10/05/16 15:45 (NS Flush) 2 ml BID IVF 10/05/16 21:00 (Tylenol) 650 mg Q6H PRN PO 10/05/16 15:45 (Peridex 0.12% Liq) 15 ml BID@08,20 MT 10/05/16 20:00 10/06/16 00:18 (Protonix Inj) 40 mg DAILY IV 10/06/16 09:00 10/06/16 08:57 (Lovenox Inj) 40 mg Q24H SQ 10/05/16 20:00 10/05/16 20:51 Miscellaneous Information 1 Q361D XX 10/05/16 15:45 10/05/16 15:45 (Chlorhexidine 2% Cloth) 3 pack Taper DAILY@04 TOP 10/06/16 04:00 10/02/17 03:59 10/06/16 04:00 Chlorhexidine Gluconate 3 pack 3 pack UNSCH PRN TOP 10/05/16 15:45 (Diprivan 1000 Mg/100ml Inj) 100 ml @ 0 mls/hr TITRATE IV 10/05/16 15:45 10/06/16 06:22 Insulin Aspart 1 1 Q6HR SQ 10/05/16 18:00 (NS 1000 ml Inj) 1,000 ml @ 100 mls/hr Q10H IV 10/05/16 16:00 10/06/16 02:00 Social History She is from [place], She is , She is employed as machine worker in 's company, She lives In [place], she has 2 kids, her highest level of education is HS. Physical Exam Vital Signs Vital Signs Date Time Temp Pulse Resp B/P Pulse Ox O2 Delivery O2 Flow Rate FiO2 10/06/16 12:00 77 10/06/16 08:00 40 10/06/16 07:49 92 10/06/16 04:00 98.2 12 133/80 10/05/16 19:18 Auto-Vent 10/05/16 17:44 12 I/O 10/05/16 10/05/16 10/06/16 08:00 16:00 00:00 Output Total 800 ml Balance -800 ml Mental Status Examination Patient is intubated, sedated Assessment & Plan Problem List: (1) Major depressive disorder Assessment & Plan: Patient is currently sedated, intubated and unable to cooperate with psychiatric evaluation, but given the lethality of her recent suicidal attempt, and based in collateral information given by her is highly possible the patient overdosed with suicidal intention due to depression in the context of multiple stressors, as mentioned above. This patient represents at increased risk of danger to self and suicidality and needs psychiatric admission for stabilization and safety. Once patient is psychiatric stable please let us know to transfer her to psychiatry. If patient is completely medically clear she can be transferred to regular psychiatrist, if she might need still some medical care she can be transferred to the med psych unit. No psychotropics recommended at this moment. ICD Code: F32.9 Assessment & Plan Estimated LOS: days Problem Qualifiers (1) Major depressive disorder: Jostin Bella MD Oct 06, 2016 14:31
[2016-10-06] MEDS: ENOXAPARIN SODIUM 40 MG/0.4 ML SYRINGE SQ SCH (20:45)
--- NOTE | 2016-10-06 21:14 | EKG ---
Date Performed: 10/05/2016 Time Performed: 16:23:19 PTAGE: 76 years EKG: Sinus rhythm WITH SHORT ND INTERVAL PROLONGED QT INTERVAL ABNORMAL ECG NO PREVIOUS TRACING DOCTOR: Ventura Valle Interpretating Date/Time 10/06/2016 21:06:58
[2016-10-07] VITALS (13 sets, daily range): BP systolic 121–139; BP diastolic 58–92; PULSE 69–84; RESP 16–18; TEMP 98–99.9; O2SAT 93–97
[2016-10-07] MEDS: SODIUM CHLOR 0.9% 1000 ML INJ 1,000 ML IV SCH ×3 (01:37→18:00)
[2016-10-07] MEDS: CHLORHEXIDINE GLUCONATE 2 % 1 PACK (2 CLOTHS) TOP SCH (04:00)
[2016-10-07] MEDS: INSULIN ASPART SUPPLEMENTAL SCALE SQ SCH ×4 (06:00→18:00)
[2016-10-07] MEDS: SODIUM CHLORIDE 0.9% FLUSH 5 ML FLUSH IVF SCH ×2 (09:00→20:29)
[2016-10-07] MEDS: PANTOPRAZOLE SODIUM 40 MG VIAL IV SCH (09:00)
--- NOTE | 2016-10-07 18:00 | HHI.PR ---
Objective Objective Results - Vital Signs Date Time Temp Pulse Resp B/P Pulse Ox O2 Delivery O2 Flow Rate FiO2 10/07/16 16:00 77 10/07/16 12:00 80 10/07/16 10:00 74 10/07/16 08:00 77 10/07/16 07:48 94 Nasal Cannula 2.00 10/07/16 06:00 82 10/07/16 04:00 98.5 79 17 139/68 94 10/07/16 04:00 79 10/07/16 02:00 84 10/07/16 00:00 79 10/07/16 00:00 98.5 79 17 139/72 96 10/06/16 22:00 85 10/06/16 20:00 99.9 88 16 122/60 98 10/06/16 20:00 88 10/06/16 19:12 96 Nasal Cannula 4.00 10/06/16 18:00 74 I/O 10/06/16 10/06/16 10/06/16 10/07/16 10/07/16 10/07/16 07:00 15:00 23:00 07:00 15:00 23:00 Intake Total 794 ml 356 ml 685 ml 683 ml Output Total 250 ml 150 ml 441 ml Balance 544 ml 356 ml 535 ml 242 ml Intake IV Total 744 ml 356 ml 685 ml 683 ml Other 50 ml Output Urine Total 250 ml 150 ml 441 ml Stool Total 0 ml # Voids 1 2 Result Diagram: 10/06/16 0307 10/06/16 0307 Other Results Date/Time Procedure Status Source Growth 10/05/16 13:05 Urine Culture - Preliminary Resulted Urine Catheterized Urine Lactobacillus Species Gram Negative Julien Physical Exam Physical Exam pt is seen & Examined d/w PT d/w Sepideh see Orders see Consult will f/u Lilian Copeland MD Oct 07, 2016 18:00
[2016-10-07] MEDS: CHLORHEXIDINE 0.12% (ORAL KIT) 15 ML CUP MT SCH (20:00)
[2016-10-07] MEDS: ENOXAPARIN SODIUM 40 MG/0.4 ML SYRINGE SQ SCH (20:29)
[2016-10-08] VITALS (8 sets, daily range): BP systolic 128–155; BP diastolic 75–92; PULSE 72–80; RESP 15–18; TEMP 97.6–98.2; O2SAT 92–95
[2016-10-08] MEDS: SODIUM CHLOR 0.9% 1000 ML INJ 1,000 ML IV SCH (03:43)
[2016-10-08] MEDS: CHLORHEXIDINE GLUCONATE 2 % 1 PACK (2 CLOTHS) TOP SCH (03:45)
[2016-10-08 04:18] LABS: HEMATOCRIT 31.6 % (35.0-46.0); MEAN CELL VOLUME 89.9 FL (80.0-100.0); MEAN CORPUSCULAR HEMOGLOBIN 30.5 PG (27.0-34.0); MEAN CORPUSCULAR HGB CONC 33.9 % (32.0-36.0); PLATELET COUNT 211 TH/MM3 (150-450); RED BLOOD COUNT 3.52 MIL/MM3 (4.00-5.30); RED CELL DISTRIBUTION WIDTH 14.2 % (11.6-17.2); REVIEW FLAG FINAL; WHITE BLOOD COUNT 10.9 TH/MM3 (4.0-11.0)
[2016-10-08 04:34] LABS: BICARBONATE 28.7 MEQ/L (21.0-32.0); POTASSIUM 3.3 MEQ/L (3.5-5.1)
[2016-10-08] MEDS: INSULIN ASPART SUPPLEMENTAL SCALE SQ SCH ×3 (06:00→12:00)
[2016-10-08] MEDS: CHLORHEXIDINE 0.12% (ORAL KIT) 15 ML CUP MT SCH (08:00)
[2016-10-08] MEDS: SODIUM CHLORIDE 0.9% FLUSH 5 ML FLUSH IVF SCH (09:00)
[2016-10-08] MEDS ORDERED: CEFUROXIME AXETIL 250 MG TAB PO SCH (11:45)
--- NOTE | 2016-10-08 17:35 | PD.CONS ---
HPI Service [facility] Hospitalists Consult Requested By Walnut Dehydrator Operator Reason for Consult Medical management of patient's comorbidities. Monitoring of labs, nutritional needs , medications Primary Care Physician Unknown Diagnoses: History of Present Illness This is a 76-year-old female who presented to the ER with altered mental status her found her approximately oh 9 AM with empty bottles of Xanax and Lexapro. Initial Lexapro bottle was filled on 07/31/16 and had 30 tablets and Xanax was field on 09/19/16 with 60 tablets. There is no exact amount of pills known for consumption, the patient was very drowsy. EVAC was called per . Cholo patient was very lethargic but would open eyes to command. No signs of physical trauma patient was intubated for airway protection and sedated on propofol in the emergency room. She was transferred to the intensive care for further monitoring. 24 hours later patient was able to be extubated, t[place] this consult was initiated for her medical management. Psych consultation is in place. Review of Systems Psychiatric: COMPLAINS OF: Anxiety, Depression Other 12 point review was done. Positive findings include anxiety and depression. All other systems negative/unremarkable Past Family Social History Past Medical History Asthma depression anxiety Past Surgical History Patient stated no to any surgery. According to the record patient has had some type of kidney surgery and breast augmentation Reported Medications Active Medications Cefuroxime Axetil (Ceftin) 250 mg Q12HR PO; Start 10/08/16 at 11:45; Stop at 14:08; Status DC Allergies: Coded Allergies: No Known Allergies (Unverified , 10/05/16) Active Ordered Medications Active Medications Cefuroxime Axetil (Ceftin) 250 mg Q12HR PO; Start 10/08/16 at 11:45; Stop at 14:08; Status DC Family History No known history of depression or anxiety Heart disease Social History She is , currently lives in a home with her . Patient has large family. Lots of stressful issues right now. Drinking wine coolers approximately once a week No tobacco No Illicit drugs Physical Exam Vital Signs Vital Signs Date Time Temp Pulse Resp B/P Pulse Ox O2 Delivery O2 Flow Rate FiO2 10/08/16 12:00 78 10/08/16 12:00 98.2 72 18 147/75 95 10/08/16 10:00 78 10/08/16 08:10 92 Nasal Cannula 2.00 10/08/16 08:00 98.1 78 16 128/92 95 10/08/16 08:00 78 10/08/16 06:00 80 10/08/16 04:00 97.6 76 15 155/78 92 10/08/16 04:00 76 10/08/16 02:00 80 10/08/16 00:00 98.0 77 18 143/81 93 10/08/16 00:00 77 10/07/16 22:00 78 10/07/16 21:02 93 Nasal Cannula 2.00 10/07/16 20:00 98.1 78 16 128/92 95 10/07/16 20:00 78 10/07/16 18:00 80 Physical Exam GENERAL: This is a well-nourished, well-developed patient, in no apparent distress. Good historian SKIN: No rashes, ecchymoses or lesions. Cool and dry. HEAD: Atraumatic. Normocephalic. No temporal or scalp tenderness. EYES: Pupils 2mm, equal round and reactive. Extraocular motions intact. No scleral icterus. No injection or drainage. ENT: Nose without bleeding, purulent drainage or septal hematoma. Throat without erythema, tonsillar hypertrophy or exudate. Uvula midline. Airway patent. NECK: Trachea midline. No JVD or lymphadenopathy. Supple, nontender, no meningeal signs. CARDIOVASCULAR: Regular rate and rhythm without murmurs, gallops, or rubs. RESPIRATORY: Clear to auscultation. Breath sounds equal bilaterally. No wheezes , rales, or rhonchi. GASTROINTESTINAL: Abdomen soft,round, non-tender, nondistended. No hepato- splenomegaly, or palpable masses. No guarding. MUSCULOSKELETAL: Extremities without clubbing, cyanosis, or edema. No joint tenderness, effusion, or edema noted. No calf tenderness. Moves all extremities with purpose NEUROLOGICAL: Awake and alert. Cranial nerves II through XII intact. Motor and sensory grossly within normal limits. Five out of 5 muscle strength in all muscle groups. Normal speech. Laboratory Laboratory Tests Test 10/08/16 03:42 White Blood Count 10.9 Red Blood Count 3.52 Hemoglobin 10.7 Hematocrit 31.6 Mean Corpuscular Volume 89.9 Mean Corpuscular Hemoglobin 30.5 Mean Corpuscular Hemoglobin 33.9 Concent Red Cell Distribution Width 14.2 Platelet Count 211 Mean Platelet Volume 8.0 Sodium Level 142 Potassium Level 3.3 Chloride Level 107 Carbon Dioxide Level 28.7 Anion Gap 6 Blood Urea Nitrogen 10 Creatinine 0.79 Estimat Glomerular Filtration 71 Rate Random Glucose 107 Calcium Level 8.2 Date/Time Procedure Status Source Growth 10/05/16 13:05 Urine Culture - Final Complete Urine Catheterized Urine Lactobacillus Species Klebsiella Pneumoniae Result Diagram: 10/08/1634110/08/16 0342 A/P Assessment and Plan Major depressive disorder Overdose Anxiety disorder Asthma We will monitor her medical condition which will include monitoring her vital signs, lab values, and any abnormals. Patient has a urine culture that is pending. She may need antibiotics. Supportive care to patient. While her to talk and discuss any needs. Nutritional needs and encourage by mouth hydration as well as food. Safety precautions. Patient has been on bed rest but now can set on side of the bed and go to bathroom with assistance. We will follow this patient until she stabilizes. She will then be transferred to psychiatric service. Consult has already been done. Thank you very much. Discharge Planning initiated. Psychiatric floor when stable. Discussed With: Nurse, Other (patient,Dr. Copeland. Seen on his behalf.) Sepideh Lay Oct 08, 2016 17:35
--- NOTE | 2016-10-10 09:51 | MB ---
cc: SHELLEY COPELAND MD DATE OF CONSULTATION: 10/07/2016 REASON FOR CONSULTATION: Medical management. CHIEF COMPLAINT/REASON FOR ADMISSION: Overdose. Altered mental status. No travel in 30 days or less. HISTORY OF PRESENT ILLNESS: This is a 76 year-old white female who has a past medical history of depression and anxiety. She presented to the emergency room with altered mental status, status post overdose. Her found her approximately at 9:00 a.m. with empty bottles of her Xanax and Escitalopram the patient had 30 tablets of escitalopram on 07/31/2016 and #60 tablets of Xanax on September 19, 2016. The patient was very lethargic and was not following commands. The patient was mechanically ventilated in the emergency room. She was sedated with the propofol and was taken to room #502. The patient has been receiving critical care and followed by critical care but was able to extubate yesterday. She is currently on two liters nasal cannula. She is awake and alert, and was able to give me history on what has been going on. She states that there are multiple stressors in her life which includes a move to a new home, caring for a who has dementia, and a large family with other issues she did not want to go into at this time. Currently there is no family at the bedside but, there has been a quite number of family here according to the nurse. There was no signs of trauma on admission to the emergency room. PAST MEDICAL HISTORY: 1. Asthma. 2. Depression. 3. Anxiety with hair twisting. PAST SURGICAL HISTORY: 1. Breast augmentation. 2. Kidney surgery, possibly. 3. When the patient was asked she stated "none". ALLERGIES NO KNOWN. SOCIAL HISTORY: The patient denies any tobacco use, illicit drug use, does admit to social alcohol and specifically said wine coolers once per month. The patient is , currently lives in the home with her . FAMILY HISTORY: Diabetes Heart disease. REVIEW OF SYSTEMS A 12 point review was done, essentially unremarkable for any positive findings. PHYSICAL EXAMINATION: GENERAL: Well nourished, well developed white female who looks younger then her stated age, resting in the bed, moving around without any difficulty. During my visit she actually sat up in the bed and was requesting someone to assist her to the bathroom. HEAD, EYES, EARS, NOSE, AND THROAT: Normocephalic, atraumatic, alopecia noted on her lateral posterior side of her head where she states that she is twisting and pulling her hair secondary to stress. Pupils 3 mm's bilateral, equal and reactive to light, no scleral icterus, no drainage noted. Mucous membranes are slightly dry but pink. Tongue is midline. Trachea is midline, no jugular venous distention is noted. CARDIOVASCULAR SYSTEM: Regular rate and rhythm in the 70's-80's. Heart sounds auscultated with no murmurs, rubs or gallops. No pedal edema, respiratory even, unlabored at rest. Clear to auscultation posteriorly, anteriorly, right upper lung field has an occasional slight wheeze noted. GASTROINTESTINAL: Abdomen is soft, nontender, nondistended, active bowel sounds in all four quadrants. MUSCULOSKELETAL: She moves all extremities with purpose, there are no signs of clubbing or edema. No obvious deformities, pulses are 4+ pedal, bilateral, PT bilateral. NEUROLOGICALLY: She is aware and alert times four with appropriate answers. There are periods of time during the overdose that she does not remember but since she has woke up she is appropriate. Motor functions are intact. Cranial nerves II through XII intact, bilateral. Muscle strength 5/5 with no issues, speech is normal. PSYCHIATRIC: Appropriate mood and affect. Questionable insight and judgment at this time. DATA: On 10/06/2016; white count is 14.4 which is up from 7.2 on 10/05/2016 red blood cell count is 4.62. Hemoglobin is 13.8, hematocrit 42.4. Platelet count 268, MPV 8.2. Neutrophils auto 77.1. On 10/05/2016; PT/INR is 7.9. Urine on 10/05/2016 was yellow, clear. PH was 5.5. Specific gravity was 1.011, negative for any protein, glucose, ketones, blood, nitrates or bilirubin. She did have a rare amount of bacteria, a few urine mucous, small amount of leukocyte esterase, culture was indicated. Her preliminary report shows a gram negative piero of lactobacillus species. Chemistry done on 10/06/2016; sodium 142, potassium 3.7, chloride 104, blood urea nitrogen 16, creatinine 1.10, glomerular filtration rate 48, random glucose at 115. Her toxicology that was done on 10/05/2016 was positive for benzos. Her acetaminophen level was 7.6. ASSESSMENT AND PLAN: 1. Acute respiratory failure requiring Mechanical ventilation. 2. Asthma. 3. Major depressive disorder. 4. Anxiety. 5. Encephalopathy secondary to her benzos / Citalopram overdose. 6. Leukocytosis. PLAN: The plan is to follow the patient with medical management. Her respiratory failure has resolved and she has been extubated for 24 hours on two liters nasal cannula. We will continue to observe any problems with wheezing. The patient does use an inhaler at home. We will start her on DuoNeb's q six as needed. The patient has had symptoms of asthma her whole adult life and stated duoneb will be ordered. We will continue to hydrate. Monitor intake and output, monitor her rhythm. Monitor for any fever and monitor blood pressure, currently, she has had no fever. We will monitor labs which will include; basic metabolic profile and complete blood count for the morning. The patient has had a slight climb in her white count but this could be secondary to intubation. We will monitor her for any acute changes in medical management. If the white count continues to rise, this will be discussed with Dr. Copeland for any acute needs. The patient has been seen by psychiatry, they have agreed to monitor and assume the care of this patient when she is medically stable which maybe within the next 24/48 hours. Monitor her nutritional status and monitor any smaller issues status post intubation. Deep venous thrombosis prophylaxis, with Lovenox, peptic ulcer disease prophylaxis with Protonix. Code status is full code, full aggressive care, currently on bed rest but we are looking at changing that to bathroom privileges with assistance. Sequential compression devices bilateral. DICTATED BY: SONDRA Greenfield MD TYLER Arita/tom /5:02 PM /9:48 AM
--- NOTE | 2016-10-10 09:52 | MB ---
cc: SHELLEY COPELAND MD DATE OF : 1940 DATE OF CONSULTATION: 10/07/2016 REASON FOR CONSULTATION: Assistance with medical management. CHIEF COMPLAINT: Drug overdose. HISTORY OF PRESENT ILLNESS: This is a 76 year-old white female who was brought into the emergency room with altered mental status. Her found her approximately 9 a.m. with empty bottles of Xanax and Escitalopram. The patient had 60 tablets of Xanax and approximately 30 tablets of Escitalopram that had been filled on 07/31/2016. When was taking to her she was arousable and would open her eyes but was very lethargic and unable to carry on a conversation. Her vital signs were stable but she was not following commands. She was given 2 milligrams of Narcan by the EVAC, intubated for airway protection and started on propofol. There were no signs of physical trauma when the patient arrived. The patient was stabilized and moved to the Intensive Care Unit for further monitoring. PAST MEDICAL HISTORY: 1. Asthma. 2. Anxiety and depression. PAST SURGICAL HISTORY: Patient stated "no" during exam but according to the records she has had some type of kidney surgery and breast augmentation. ALLERGIES: None known. SOCIAL HISTORY: The patient is an occasional wine cooler drinker. No tobacco. No illicit drug use, only takes her prescription drugs. FAMILY HISTORY: No known depression or anxiety issues. Heart disease. MEDICATIONS: 1. Protonix 40 milligrams IV daily. 2. Chlorhexidine swabs. 3. Lovenox 40 milligrams q24 subcu. 4. NovoLog insulin for sliding scale. 5. DuoNeb 6. Tylenol 650 milligrams q6 p.r.n. REVIEW OF SYSTEMS: A 12 point review of systems was done. Patient is now alert, altered mental status has resolved. Other systems negative/unremarkable. PHYSICAL EXAMINATION: VITAL SIGNS: Temperature was 98.3, pulse 78, respiratory rate 18, blood pressure 121/58, O2 sat 98. Currently the patient is on two liters nasal cannula. GENERAL: This is a well-nourished white female who looks younger than stated age resting in the bed. She is now off ventilator support, alert, and a fair historian. SKIN: Warm and dry, slightly pale. HEENT: PERRLA with pupils 2 millimeters bilaterally. No icterus. Mucous membranes are pink and moist. NECK: Supple. No JVD. CARDIOVASCULAR: S1-S2, with a regular rate and rhythm. There are no murmurs, rubs, or gallops appreciated. She has no pedal edema and pulses are intact. PULMONARY: Lungs are essentially clear anteriorly and posteriorly with no rales, rhonchi or wheezing. Lung expansion is even from left to right. GASTROINTESTINAL: Abdomen is soft, non-tender, non-distended. Active bowel sounds all four quadrants. No guarding. MUSCULOSKELETAL: She moves all extremities with purpose. She has no edema. Pulses are 2+/4+ in her lower extremities. NEUROLOGIC: Alert, oriented, fair historian, answers questions appropriately. Does not elaborate on some of her answers. Her hand sales property manager are equal. Cranial nerves are intact. Alert, oriented x4, appropriate mood except for being a little quite. LABORATORY DATA: On 10/06, patient's WBC count is 14.4, RBC 4.62, hemoglobin 13.8, hematocrit 42.4, platelet count 268, MPV 8.2, neutrophils absolute 77.1. On 10/06/2016, sodium is 142, potassium 3.7, chloride 104, carbon dioxide 29.4, anion gap 9, BUN 15, creatinine 1.10, estimated GFR 48, random glucose 115, protein 6.9, albumin 3.5. Urine on 10/05/2016 is yellow clear, pH is 5.5, specific gravity 1.011, negative for protein, glucose, ketones, occult blood, nitrites, bilirubin, few mucous, rare bacteria, small amount of leukocyte esterase. Urine catheter, initial results were Gram-negative rods. ASSESSMENT AND PLAN: 1. Major depressive disorder. 2. Overdose. 3. Asthma. 4. Anxiety disorder. 5. Possible UTI. The plan is to monitor her labs and vital signs for any needs. Urine culture is pending for final results. Vital signs q4. CBC and diff, for in the morning. Regular diet. DTE prophylaxis with Lovenox. PUD prophylaxis with Protonix. These were started on admission but we will monitor any needs. Activity has been bed rest but she can be advanced to bedside commode with assistance. Patient has been seen per psych. Once the patient is stable she will transfer to their service. Please call for any medical needs. Neuro checks q4, p.o. hydration, intake and output, glycemic control, monitoring. Watch for any hypotensive issues. Thank you for the consultation. Dictated by: SONDRA Vee MD TYLER Arita/BUNNY /5:02 PM /9:51 AM pt is seen & Examined d/w PT d/w Sepideh see Orders see Consult will f/u Shelley Copeland MD Oct 07, 2016 18:00 MTDD
--- NOTE | 2016-11-10 17:42 | HHI.DS ---
Discharge Summary Admission Date Oct 05, 2016 at 14:30 Discharge Date: Oct 08, 2016 Admitting Diagnosis Overdose (1) Overdose (2) Respiratory failure (3) Major depressive disorder (4) Anxiety and depression Imaging Last Impressions Chest X-Ray 10/06/16 0000 Signed Impressions: Service Date/Time: September 09:05 - CONCLUSION: 1. Interval extubation and removal of nasogastric tube. 2. No acute cardiopulmonary disease. Murray Alcaraz MD Head CT 10/05/16 1244 Signed Impressions: Service Date/Time: Wednesday, October 05, 2016 23:14 - CONCLUSION: No acute intracranial findings. Moderate sinus disease. Vinnie Kennedy MD Hospital Course This is a 76 year-old white female who has a past medical history of depression and anxiety. She presented to the emergency room with altered mental status, status post overdose. Her found her approximately at 9:00 a.m. with empty bottles of her Xanax and Escitalopram the patient had 30 tablets of escitalopram on 07/31/2016 and #60 tablets of Xanax on September 19, 2016. The patient was very lethargic and was not following commands. The patient was mechanically ventilated in the emergency room. She was sedated with propofol and was taken to room #502. The patient was initially admitted under critical care and followed by critical care team. She was extubated. Post extubation, she was alert and oriented and able to provide some history. She stated that there were multiple stressors in her life which includes a move to a new home, caring for a who has dementia, and a large family with other issues she did not want to go into at that time. Pt. was admitted for : 1. Acute respiratory failure requiring Mechanical ventilation. 2. Asthma. 3. Major depressive disorder. 4. Anxiety. 5. Encephalopathy secondary to her benzos / Citalopram overdose. 6. Leukocytosis. 7. OD During the course of the hospitalization, the following took place: Pt. initially intubated and [facility] service. Extubated and oxygen weaned down. Was noted with leukocytosis, no fever, no antibiotics were started. Imaging studies were followed. Al given Psych consulted, recommended inpatient [facility] when medically stable She was hydrated. Diet advanced. Put on appropriate DVT and GI prophylaxis. Pt. medically stable, was discharged to psych unit. Pt Condition on Discharge: Stable Discharge Disposition: Disc to Psych Care Fac Discharge Instructions DIET: Follow Instructions for: As Tolerated, No Restrictions Activities you can perform: Regular-No Restrictions Gisell Feliciano Nov 10, 2016 17:42
== END 2016-10-08 14:05 | DRG 917 ==
LOC: NEPE 11:44 → NEDA 14:30 → HIMW 23:25
PROVIDERS: ADMIT Internal Medicine Critical Care Medicine; ATTEND Internal Medicine Critical Care Medicine
DX: T43.222A Poisoning by selective serotonin reuptake inhibitors, intentional self-harm, initial encounter (principal); G92 Toxic encephalopathy; J96.00 Acute respiratory failure, unspecified whether with hypoxia or hypercapnia; F32.9 Major depressive disorder, single episode, unspecified; T42.4X2A Poisoning by benzodiazepines, intentional self-harm, initial encounter; Y92.009 Unspecified place in unspecified non-institutional (private) residence as the place of occurrence of the external cause; J45.909 Unspecified asthma, uncomplicated; I51.7 Cardiomegaly; D72.829 Elevated white blood cell count, unspecified
CPT/HCPCS: 31500; 36600; 70450; 71010; 80048; 80053; 80307; 80320; 80329; 81001; 82140; 82550; 82805; 82948; 84443; 84484; 85025; 85027; 85610; 85730; 87077; 87086; 87186; 87641; 93005; 94002; 94003; 96365; 96375; C9113; G0480; G0481; J0330; J1650; J7030

== ENCOUNTER 2016-10-08 12:10 | Inpatient (IN) | payer MEDICARE ==
[~2016-10-08] VITALS: Ht 157.5 cm; Wt 67.4 kg
[~2016-10-08 12:10] MED LIST: ALPR.25 PO; LEXA5TAB PO
--- NOTE | 2016-10-08 14:44 | HHI.HP ---
Provisional Diagnosis Admission Date Oct 08, 2016 at 12:10 [place] I. Major depressive disorder chronic recurrent with anxiety status post overdose [place] II. No diagnosis [place] III. Please see the LMD's note [place] IV. Moderate stress difficulty coping [place] V. GAF of 45 Certification of Person's Competence To Provide Express and Informed Consent I have personally examined Magda Earl , a person being served at [facility] on, Oct 08, 2016 14:33. Express and informed consent means consent voluntarily given in writing, by a competent person, after sufficient explanation and disclosure of the subject matter involved to enable the person to make a knowing and willful decision without any element of force, fraud, deceit, duress, or other form of constraint or coercion. This person is 18 years of age or older, is not now known to be incompetent to consent to treatment with a guardian advocate, and does not have a health care surrogate or proxy currently making medical treatment decisions. I have found this person to be one of the following: [x] Competent to provide express and informed consent, as defined above, for voluntary admission to this facility and is competent to provide express and informed consent for treatment. He/she has the consistent capacity to make well reasoned, willful, and knowing decisions concerning his or her medical or mental health treatment. The person fully and consistently understands the purpose of the admission for examination/placement and is fully capable of personally exercising all rights assured under [place] Incompetent to provide express and informed consent to voluntary admission, and this is incompetent to provide express and informed consent to treatment. The person must be transferred to involuntary status and a petition for a guardian advocate filed with the Circuit Court. [] Refusing to provide express and informed consent to voluntary admission but is competent to provide express and informed consent for treatment. The person must be discharged or transferred to involuntary status. Form shall be completed within 24 hours of a person's arrival at the receiving facility and filed in the clinical record of each person: 1. Admitted on a voluntary basis 2. Permitted to provide express and informed consent to his/her own treatment 3. Allowed to transfer from involuntary to voluntary status 4. Prior to permitting a person to consent to his or her own treatment after having been previously found incompetent to consent to treatment. History of Present Illness Capacity: Has Capacity HPI This is a 76-year-old white woman who was transferred from the medical floor after she was medically stable following an overdose. Patient claimed that she has been under a lot of stress. And has been feeling depressed. Her was recently diagnosed with cancer and she is worried about him. Her son is going to correction because of drinking. And her granddaughter got she is only 20 years old. Patient also is in the process of move because they sold their house and moving into a smaller home. Patient was feeling overwhelmed had trouble sleeping. Patient denied any auditory or visual hallucinations or any paranoia. Now she feels sorry for what she did it did not help the situation. But at that point impulsively she took handful of medication and her found her called 911 and was hospitalized. Patient denies any suicidal ideation intentions or plan. And reportedly her is very supportive if she comes back home. Patient claimed that she was taking Lexapro and Xanax. Review of Systems Except as stated in HPI: all other systems reviewed are Neg Psychiatric: COMPLAINS OF: Anxiety, Mood changes, Depression Past Psych History Psychological trauma history Patient denied any physical verbal or sexual abuse growing up Violence risk - others (6 mos) Denies Violence risk - self (6 mos) Patient just overdosed out of feeling overwhelmed that is the first time and now she feels sorry and regrets it Substance Abuse History Drugs/Alcohol past 12 months Patient denied any history of alcohol or drug abuse Past Family Social History Coded Allergies: No Known Allergies (Unverified , 10/05/16) Reported Medications Escitalopram (Lexapro)5 Mg TabUnknown Dose PO DAILY Ref 0 10/05/16 Alprazolam (Xanax)0.25 Mg TabUnknown Dose PO Ref 0 10/05/16 Family History Negative for any emotional difficulty or nervous breakdown but her son has a problem drinking. And 1 son had committed suicide Social History Patient was born in [place]. She has one older brother. Patient is the youngest in the family. She was very close to her parents her parents . Her childhood was happy. She denied any physical verbal or sexual abuse growing up. She did finish high school and 1-1/2 year of college. She has been twice first marriage was when she was about 20 years old that lasted for 12 years patient had 2 sons from that. One son committed suicide. Second marriage is for the last 40 years to her present . They get along fairly well except that her has been recently diagnosed with having cancer. And patient worries about him. Patient's Strengths (min. 2) Patient is cooperative and willing to take the medication Physical Exam Please see the LMD's note patient did not complain of any physical problem or medical complaints. Her vital signs are stable. Mental Status Examination This is a 76-year-old younger looking female who was alert oriented 3 cooperative casually dressed her speech was slow without any evidence of loose associations or flights of ideas or pressure speech her mood was described as feeling sorry for what she did. She feels depressed and overwhelmed with the stress but now denies any suicidal ideation intentions or plan. Her thoughts were organized. No behavior or management problem noted. Patient denied any auditory or visual hallucinations. No evidence of any paranoid delusion. She seems to be of average intelligence with fairly good memory for her age. Her insight is fair and her judgment seems to be okay on hypothetical situation. Her gait is normal her language is normal and her fund of knowledge is average Assessment & Plan Problem List: (1) Major depressive disorder ICD Code: F32.9 Assessment & Plan Estimated LOS:3-5 days. 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 Now she feels sorry and guilty but willing to take the medication and follow-up as an outpatient once she is stable. Admitted observe and evaluate and treat. Patient will participate in all the therapeutic activity on the floor. We will resume her Lexapro and trazodone to help her sleep at night. Request social worker assistant to assist in aftercare and discharge planning. Vital signs every shift. Side effect another alternative treatment were explained to the patient. Patient is willing to cooperate with the treatment. Request HC Surrog/Guard Advoc?: No Problem Qualifiers (1) Major depressive disorder: Otoniel Pastor MD Oct 08, 2016 14:44
[2016-10-08] MEDS ORDERED: MAGNESIUM HYDROXIDE SUSP 30 ML CUP PO PRN (15:00)
[2016-10-08] MEDS ORDERED: LORazepam 2 MG/ML VIAL - age > 65 yrs IM PRN (15:00)
[2016-10-08] MEDS ORDERED: ALUMINUM/MAGNESIUM/SIMETH 30 ML CUP PO PRN (15:00)
[2016-10-08] MEDS ORDERED: ACETAMINOPHEN 325 MG TAB PO PRN (15:00)
[2016-10-08] MEDS ORDERED: LORazepam 0.5 MG TAB age > 65 yrs PO PRN (15:00)
[2016-10-08 16:49] VITALS: BP 156/78; PULSE 76; RESP 16; TEMP 98.2; O2SAT 99
[2016-10-08] MEDS: traZODone HCL 50 MG TAB PO SCH (21:34)
[2016-10-09 05:11] VITALS: BP 136/70; PULSE 78; RESP 18; TEMP 98; O2SAT 98
[2016-10-09] MEDS: ESCITALOPRAM OXALATE 20 MG TAB PO SCH (08:48)
--- NOTE | 2016-10-09 19:52 | HHI.PYPN ---
Subjective Remarks Pt seen and discussed with staff. Pt reports that she is feeling remorseful over OD and is worried about her . She details numerous stressors and states that she has decided to get help to care for and with her pending move. She denies medication side effects. She denies SI/HI. "I'm never doing that again. It's just selfish. When I think of what could have happened to me and my family, i just feel so scared and ashamed." Staff report that she has been active in milieu activities. Objective Alert: Yes P[place]: Place, Date, Situation Mood: Depressed Affect: Restricted Memory Intact: Immediate, Recent, Remote Hallucinations: Other (none) Delusions: No Delusion Type: Other (none) Suicidal: Ideation (denies) Homicidal: Ideation (denies) Insight/Judgement poor Vitals/IOs Vital Signs Date Time Temp Pulse Resp B/P Pulse Ox O2 Delivery O2 Flow Rate FiO2 10/09/16 05:11 98.0 78 18 136/70 98 Assessment & Plan Problem List: (1) Major depressive disorder ICD Code: F32.9 Assessment & Plan Continue current tx plan. Estimated LOS: days Justification for Cont. Inpt. impairments in safety Request HC Surrog/Guard Advoc?: No Problem Qualifiers (1) Major depressive disorder: Jennifer Lucero MD Oct 09, 2016 19:52
[2016-10-09] MEDS: traZODone HCL 50 MG TAB PO SCH (20:26)
[2016-10-09 20:30] VITALS: BP 132/66; PULSE 80; RESP 16; TEMP 98; O2SAT 98
[2016-10-10 05:24] VITALS: BP 130/60; PULSE 86; RESP 16; TEMP 98; O2SAT 94
[2016-10-10 07:44] LABS: ANION GAP 8 MEQ/L (5-15); BICARBONATE 29.4 MEQ/L (21.0-32.0); BLOOD UREA NITROGEN 12 MG/DL (7-18); CHLORIDE 104 MEQ/L (98-107); GLOMERULAR FILTRATION RATE 56 ML/MIN (>89); HDL CHOLESTEROL 51.9 MG/DL (40.0-60.0); LDL CHOLESTEROL 164 MG/DL (0-99); POTASSIUM 3.8 MEQ/L (3.5-5.1); SODIUM (NA) 141 MEQ/L (136-145)
[2016-10-10] MEDS: ESCITALOPRAM OXALATE 20 MG TAB PO SCH (09:00)
--- NOTE | 2016-10-10 09:56 | MB ---
cc: SHELLEY COPELAND MD DATE OF CONSULTATION: 10/09/2016 DATE OF : 1940 REASON FOR CONSULTATION Medical management. HISTORY OF PRESENT ILLNESS This is a 76-year-old female who presented to the ER initially with a drug overdose. She too an undisclosed amount of Xanax and Lexapro, went to bed and expected not to get up the next morning. Her found her at approximately 9:00 a.m. very lethargic. EMS was called. The patient was intubated for airway protection and taken to the intensive care for further monitoring. She was able to extubate and was awake within 24 hours. She had a psych consultation as well as medical management and pediatric social worker management. When she stabilized she was transferred to the psychiatric service. We have been consulted again for medical management. PAST MEDICAL HISTORY 1. Asthma. 2. Depression. 3. Anxiety. PAST SURGICAL HISTORY Some type of kidney surgery and breast augmentation according to the record. ALLERGIES None known. MEDICATIONS Please see med reconciliation sheet. SOCIAL HISTORY The patient is currently . She lives at home with her . 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 She drinks occasionally wine coolers. No tobacco. No illicit drugs. FAMILY HISTORY No known history of depression or anxiety. REVIEW OF SYSTEMS A 12-point review was done. Positive findings include anxiety and depression. All other systems were negative or unremarkable. PHYSICAL EXAMINATION GENERAL: This is a well-nourished, well-developed white female in no acute distress. She is sitting on the side of her bed talking about her plans for the future. She is a good historian. She does not look her stated age. SKIN: Her skin is warm and dry, color is pink. No rashes. No ecchymosis. HEENT: Atraumatic, normocephalic. Pupils 2 mm, equal and reactive to light. She has no scalp tenderness but she does have a quarter size spot on the back of her head on the right posterior side where she twists her hair and has a bald spot. NECK: Trachea is midline. No JVD. HEART: Regular rate and rhythm without murmurs, rubs or gallops. LUNGS: Clear to auscultation bilaterally. No wheezes, rales or rhonchi. ABDOMEN: Soft, nontender, nondistended. Active bowel sounds in all four quadrants. EXTREMITIES: She moves all extremities with purpose. She has no clubbing, cyanosis or edema. NEUROLOGIC: She is awake, alert, talkative. Cranial nerves are intact. Motor and sensory are intact. Muscle group strength is 5/5. PSYCHOLOGIC: The patient has appropriate mood and affect. As stated above she is very talkative and seems to have sensible judgment about these last few days. LABORATORY DATA No new lab data today. She will have labs drawn in the morning. ASSESSMENT 1. Major depressive disorder. 2. History of asthma. 3. Anxiety. 4. History of overdose. PLAN The plan is to assist with the medical management, monitor her labs, any abnormal vital signs, and be a support to her. I spent approximately 30 minutes or more talking to Ms. Earl who was very willing to talk and wanted to talk about what her current situation is. She states that she became very overwhelmed and wished she could take back the overdose. She is hoping that very soon she can move into an outpatient treatment program and be discharged from the hospital. She is feeling ok. Home Medications have been resumed. Vital signs monitored every shift. The medical team is available to assist as needed. Dictated by: SONDRA Greenfield Shelley Copeland MD Patient was seen & Examined d/w PT d/w Sepideh agree with above will f/u prn. TYLER/TK /6:40 PM /9:56 AM TIA
--- NOTE | 2016-10-10 10:14 | HHI.DS ---
Psychiatry Discharge Summary Inpatient Psychiatric care?: Yes Advance Directive: No Reason Not Provided: Due to Patient Condition Mental Health AdvanceDirective: No Health Care Proxy: No Admission Admission Date Oct 08, 2016 at 12:10 Admission Diagnosis: (1) Major depressive disorder ICD Code: F32.9 GAF Score: 45 Brief History This is a 76-year-old white woman who was transferred from the medical floor after she was medically stable following an overdose. Patient claimed that she has been under a lot of stress. And has been feeling depressed. Her was recently diagnosed with cancer and she is worried about him. Her son is going to long term because of drinking. And her granddaughter got she is only 20 years old. Patient also is in the process of move because they sold their house and moving into a smaller home. Patient was feeling overwhelmed had trouble sleeping. Patient denied any auditory or visual hallucinations or any paranoia. Now she feels sorry for what she did it did not help the situation. But at that point impulsively she took handful of medication and her found her called 911 and was hospitalized. Patient denies any suicidal ideation intentions or plan. And reportedly her is very supportive if she comes back home. Patient claimed that she was taking Lexapro and Xanax. Tobacco Use In Past 30 Days: No Tobacco Past 30 Days Alcohol Use: Never Hospital Course Patient was started was supportive treatment. She was remorseful. She claimed that she is not going to do anything what she did again i.e. overdose that was selfish. Patient is willing to follow-up as an outpatient and take the medication. Patient denies any active or passive suicidal ideation intentions or plan. She is worried about her and wants to go home. Her thoughts were organized denied any auditory or visual hallucinations. No behavior or management problem reported. She persevered in some of the therapeutic activity on the floor. At this time arrangements were made for her to be discharged and follow-up as an outpatient Results Blood Pressure 130 / 60 Vital Signs Date Time Temp Pulse Resp B/P Pulse Ox O2 Delivery O2 Flow Rate FiO2 10/10/16 05:24 98.0 86 16 130/60 94 Laboratory Tests Test 10/10/16 06:55 Estimat Glomerular Filtration 56 ML/MIN (>89) Rate Triglycerides Level 167 MG/DL (42-150) Cholesterol Level 249 MG/DL (120-200) LDL Cholesterol 164 MG/DL (0-99) Laboratory Results Test 10/10/16 06:55 Triglycerides Level 167 MG/DL (42-150) Cholesterol Level 249 MG/DL (120-200) LDL Cholesterol 164 MG/DL (0-99) HDL Cholesterol 51.9 MG/DL (40.0-60.0) Summary of Major Lab Results Please see EMR Summary of Procedures None Imaging None Pending results at discharge: No Medications # of Antipsychotic meds at D/C: 0 Approp Antipsych med options 1 - Minimum of three failed multiple trials of monotherapy. 2 - Documented plan to taper to monotherapy due to previous use of multiple meds OR cross-taper in progress at D/C. 3 - Documentation of augmentation of Clozapine. 4 - Justification other than those listed in allowable values 1-3, document here : Discharge Discharge Date: Oct 10, 2016 Discharge Diagnosis: (1) Major depressive disorder Diagnosis: Principal ICD Code: F32.9 Mental Status Exam at Disch Patient was alert oriented 3 cooperative. Her thoughts were organized. Her speech was clear spontaneous without any evidence of loose associations or flights of ideas or pressure speech. She denied any suicidal ideation intentions or plan. Denied any auditory or visual hallucinations. Willing to take the medication and follow-up as an outpatient. Patient feels guilty and remorseful. Pt Condition on Discharge: Stable Discharge Disposition: Discharge Home Discharge Instructions Diet Instructions: As Tolerated, No Restrictions Activities you can perform: Regular-No Restrictions Scheduled Appointment: Discharge Time <= 30 minutes Discharge/Advance Care Plan Health Problems: (1) Major depressive disorder Goals to promote your health * To prevent worsening of your condition and complications * To maintain your health at the optimal level Directions to meet your goals Take your medications as prescribed Follow your dietary instruction Follow activity as directed Keep your appointments as scheduled Take your immunizations and boosters as scheduled If your symptoms worsen call your PCP, if no PCP go to Urgent Care Center or Emergency Room For 10/04 questions related to your inpatient stay or results of tests pending at discharge, please contact Dr. Otoniel Pastor at Smoking is Dangerous to Your Health. Avoid second hand smoking Problem Qualifiers (1) Major depressive disorder: Otoniel Pastor MD Oct 10, 2016 10:14
[2016-10-10] MEDS ORDERED: ESCI20TA PO (10:15)
[2016-10-10] MEDS ORDERED: TRAZ50TA12 PO (10:15)
[2016-10-10 11:57] LABS: HEMOGLOBIN A1a 1.5 %; HEMOGLOBIN A1b 1.1 %; HEMOGLOBIN Ao 83.5 %; HEMOGLOBIN F 1.5 %; HEMOGLOBIN LA1C 2.1 %
== END 2016-10-10 13:00 | disposition home or self-care (01) | DRG 885 ==
LOC: H250 12:10 → H260 15:54
PROVIDERS: ADMIT Psychiatry & Neurology Psychiatry; ATTEND Psychiatry & Neurology Psychiatry
DX: F33.2 Major depressive disorder, recurrent severe without psychotic features (principal); F41.9 Anxiety disorder, unspecified; J45.909 Unspecified asthma, uncomplicated; H91.90 Unspecified hearing loss, unspecified ear; T42.4X2A Poisoning by benzodiazepines, intentional self-harm, initial encounter; T43.222A Poisoning by selective serotonin reuptake inhibitors, intentional self-harm, initial encounter
CPT/HCPCS: 80048; 80061; 83036